=== PATIENT | female | born 1955 | race American Indian/Alaskan Native ===

== ENCOUNTER 2016-06-15 06:50 | Day surgery (SDC) | payer OTHER ==
[2016-06-15 07:35] VITALS: BMI 31.1
[2016-06-15 08:32] VITALS: O2SAT 100
[2016-06-15] MEDS ORDERED: Propofol 10 mg/ml Inj (20 ML) ONE (09:16)
--- NOTE | 2016-06-15 09:17 | CP.SDSHP ---
Same Day Surgery H & P - History Proposed Procedure: COLONSCOPY Pre-Op Diagnosis: SEE NOTES - Previous Medical/Surgical History Cardiac: Hypertension Endocrine/Metabolic: Thyroid Disease Neuro: Backaches Misc: Other Pain: 2.Mild Pain - Allergies Allergies: Allergies Penicillins Allergy (Intermediate, Verified 06/15/16 08:00) RASH - Physical Exam General Appearance: N Vital Signs: Vital Signs 06/15/16 06/15/16 08:20 09:12 Temperature 97 F L 97 F L Pulse Rate 80 80 Respiratory 20 20 Rate Blood Pressure 141/58 L 141/58 L O2 Sat by Pulse 100 100 Oximetry Mental Status: Alert & Oriented x3 Neuro: WNL Heart: Other Lungs: WNL GI: WNL - {Optional Preform as Required} Breast: WNL Abdomen: Other Rectal: Other Integument: WNL : WNL Ortho: Other ENT: WNL - Impression Pt. Evaluated Today:Candidate for Anesthesia & Procedure: Yes - Date & Time Time: 09:16 Short Stay Discharge - Short Stay Discharge Admitting Diagnosis/Reason for Visit: SCREENING Disposition: HOME/ ROUTINE
[2016-06-15] MEDS ORDERED: Belladonna-Phenobarbital PO STA (09:18)
[2016-06-15] MEDS ORDERED: Pantoprazole 40 mg EC Tab PO STA (09:18)
[2016-06-15] MEDS ORDERED: Lidocaine Hydrochloride 5 ML INJ ONE (09:22)
[2016-06-15] MEDS ORDERED: Lactated Ringer's 1,000 ML IV SCH (09:30)
--- NOTE | 2016-06-15 09:42 | CP.SDSHP ---
Same Day Surgery H & P - Allergies Allergies: Allergies Penicillins Allergy (Intermediate, Verified 06/15/16 08:00) RASH - Physical Exam Vital Signs: Vital Signs 06/15/16 06/15/16 08:20 09:12 Temperature 97 F L 97 F L Pulse Rate 80 80 Respiratory 20 20 Rate Blood Pressure 141/58 L 141/58 L O2 Sat by Pulse 100 100 Oximetry Short Stay Discharge - Short Stay Discharge Admitting Diagnosis/Reason for Visit: SCREENING Disposition: HOME/ ROUTINE
[2016-06-15 10:32] VITALS: TEMP 97.3
[2016-06-15 10:35] VITALS: BP 147/61; PULSE 81; RESP 16
== END 2016-06-15 11:07 | disposition home or self-care (01) ==
LOC: C.ENDO 06:50
PROVIDERS: ATTEND Specialist
DX: Z12.11 Encounter for screening for malignant neoplasm of colon (principal); K64.8 Other hemorrhoids; K63.9 Disease of intestine, unspecified
CPT/HCPCS: 45380; 88305; J2704; J7120